=== PATIENT | female | born 1990 | race Two or more races ===

== ENCOUNTER 2023-05-25 15:22 | Emergency (ER) | payer OTHER, SELFPAY ==
[2023-05-25] VITALS (9 sets, daily range): BP systolic 120–145; BP diastolic 74–97; PULSE 91–109; RESP 17–29; TEMP 36.7; O2SAT 98–100; BMI 36.5
--- NOTE | 2023-05-25 15:45 | XR_ITS ---
[address] [address] Patient Name: FARHEEN SILVERMAN MRN: [id number] date: 1990 Sex: F Assigned Patient Location: ER Current Patient Location: Accession/Order Number: [id number] Exam Date: 05/25/2023 16:04 Report Date: 05/25/2023 17:03 At the request of: GAVIN CHAPA Procedure: XR chest 2V EXAM: XR chest 2V TECHNIQUE: PA and lateral views chest HISTORY: chest pain COMPARISON: CT scan 09/10/2022 FINDINGS: The heart and mediastinum are unremarkable. The lungs are clear of any acute infiltrate, effusion or mass. Osseous structures are intact. XR/XR chest 2V IMPRESSION: No acute findings. Electronically authenticated by: LEIGH BEAR Date: 05/25/2023 17:03
--- NOTE | 2023-05-25 15:45 | ECG_ITS ---
[facility] Test Date: 2023-05-25 Pat Name: FARHEEN SILVERMAN Department: Room: - Gender: Female [employer]: : 1990 Requested By: Lan Koenig Order Number: [id number] Reading MD: SCAR BASS Measurements Intervals [place] Rate: 86 P: 52 NV: 136 QRS: 37 QRSD: 84 T: 6 QT: 350 QTc: 394 Interpretive Statements 1100 Sinus rhythm 1108 Marked sinus arrhythmia 9130 borderline ECG No previous ECG available for comparison Electronically Signed On 05-26-2023 6:18:51 EST by SCAR BASS
--- NOTE | 2023-05-25 15:50 | ED.CHESTPAI1 ---
HPI - Chest Pain General Chief Complaint: Chest Pain Stated Complaint: chest pain Time Seen by Provider: 05/25/23 15:33 Source: patient Mode of arrival: walk-in History of Present Illness HPI narrative: Patient developed pain across the anterior chest 2-3 days ago. No testing or out-patient meds taken. Today she decided to come to our ED for evaluation. No fever or cough. She denied any injury or activity that might have caused the pain. On questioning she told me that she had previously been diagnosed with blood clot in the lungs - years ago - but a repeat CTA chest at [facility] showed it had gone away . No other symptoms. Pain worse with any movement of the torso or chest. Related Data Previous Rx's Medication Instructions Recorded nabumetone 750 mg tablet 750 mg PO BID PRN pain #20 tabs 05/25/23 Allergies Allergy/AdvReac Type Severity Reaction Status Date / Time No Known Drug Allergies Allergy Verified 05/25/23 15:28 PFSH [facility] Social History Smoking status: Current every day smoker Exam Narrative Exam Narrative: Nurses notes and vital signs reviewed and patient is not hypoxic. afebrile General: Well-appearing and in no apparent distress. Skin: Warm, dry, no pallor noted. Eye: Pupils are equal, round and EOMI. No scleral icterus. Cardiovascular: Regular Rate and Rhythm without murmur, gallop or rub. Respiratory: No accessory muscle use or respiratory distress. Lungs are clear to auscultation, no wheezing, rales or rhonchi Chest Wall: diffuse anterior tenderness without crepitus or subcutaneous emphysema Musculoskeletal: normal ROM, no calf or popliteal tenderness, no lower extremity edema/swelling Neurological: A&O x4. No cranial nerve dysfunction observed. No truncal ataxia. Moves all extremities. Sensation intact. Psychiatric: Cooperative and interactive. Normal mood and affect. Constitutional Vital Signs, click to edit/add: Last Vital Signs Temp 98.1 F 05/25/23 15:26 Pulse 91 H 05/25/23 16:30 Resp 17 05/25/23 16:30 BP 142/80 H 05/25/23 16:38 Pulse Ox 100 05/25/23 16:30 Course Vital Signs Vital signs: Vital Signs Temperature 98.1 F 05/25/23 15:26 Pulse Rate 109 H 05/25/23 15:26 Respiratory Rate 18 05/25/23 15:26 Blood Pressure 120/91 05/25/23 15:26 Pulse Oximetry 99 05/25/23 15:26 Temperature 98.1 F 05/25/23 15:26 Pulse Rate 91 H 05/25/23 16:30 Respiratory Rate 17 05/25/23 16:30 Blood Pressure 142/80 H 05/25/23 16:38 Pulse Oximetry 100 05/25/23 16:30 MDM - Chest Pain MDM Narrative Medical decision making narrative: Patient was placed on air sampling and monitoring and EKG obtained. Blood drawn and sent for evaluation - screening d-dimer. CXR obtained while we awaited d-dimer result. Screening D-dimer was negative and chest x-ray was unremarkable. Patient was informed of results and discharged home. She will be given a dose of Toradol in the emergency department. I discharged her home with a prescription for Relafen. She can see her primary care physician for follow-up or return to the emergency department if she worsens. Lab Data Attestation: I reviewed the patient's lab results. Labs: Lab Results 05/25/23 Range/Units 15:59 D-Dimer 0.33 (<=0.59) mg/L FEU Imaging Data Chest x-ray: My impression: NAD Radiologist's impression: Patient Name: FARHEEN SILVERMAN MRN: [id number] date: 1990 Sex: F Assigned Patient Location: ER Current Patient Location: Accession/Order Number: [id number] Exam Date: 05/25/2023 16:04 Report Date: 05/25/2023 17:03 At the request of: GAVIN CHAPA Procedure: XR chest 2V EXAM: XR chest 2V TECHNIQUE: PA and lateral views chest HISTORY: chest pain COMPARISON: CT scan 09/10/2022 FINDINGS: The heart and mediastinum are unremarkable. The lungs are clear of any acute infiltrate, effusion or mass. Osseous structures are intact. IMPRESSION: No acute findings. Electronically authenticated by: LEIGH BEAR Date: 05/25/2023 17:03 ECG Data Attestation: I personally reviewed and interpreted this ECG as follows: Interpretation: EKG interpretation: Emergency Department physician interpretation. Normal sinus rhythm at 86bpm. Normal axis, normal intervals and no ST segment elevation or depression. Discharge Plan Discharge Chief Complaint: Chest Pain Clinical Impression: Chest pain, Pleurisy Patient Disposition: Home, Self-Care Time of Disposition Decision: 16:27 Prescriptions / Home Meds: New nabumetone 750 mg tablet 750 mg PO BID PRN (Reason: pain) Qty: 20 0RF Instructions: Chest Pain (ED), Pleurisy (ED) Stand Alone Forms: Portal Instructions Referrals: Physician,Non-Staff, MD [Primary Care Provider] - 1 week Discharge Date/Time: 05/25/23 16:40
[2023-05-25] MEDS: KETOROLAC TROMETHAMINE 10 MG TABLET PO (16:11)
[2023-05-25 16:18] LABS: D Dimer 0.33 mg/L FEU (<=0.59)
== END 2023-05-25 16:40 | disposition home or self-care (01) ==
PROVIDERS: Emergency Provider Emergency Medicine
DX: R07.9 Chest pain, unspecified (principal); R09.1 Pleurisy; F17.210 Nicotine dependence, cigarettes, uncomplicated
CPT/HCPCS: 36415; 71046; 85378; 93005; 99285

== ENCOUNTER 2024-07-01 12:51 | Emergency (ER) | payer OTHER, SELFPAY ==
[2024-07-01 12:58] VITALS: BP 163/100; PULSE 98; TEMP 37; O2SAT 99; BMI 38.7
--- NOTE | 2024-07-01 13:13 | US_ITS ---
The [place] [id number] Patient Name: FARHEEN SILVERMAN MRN: [id number] date: 1990 Sex: F Assigned Patient Location: ED.MAIN Current Patient Location: ER Accession/Order Number: [id number] Exam Date: 07/01/2024 13:15 Report Date: 07/01/2024 13:53 At the request of: LEELA SON Procedure: US venous doppler LE BI EXAMINATION: US venous doppler LE BI HISTORY: pain, hx DVT COMPARISON: No relevant comparison available. FINDINGS: REGION: Bilateral lower extremities THROMBI: None. COMPRESSIBILITY: Normal compressibility. FLOW: Normal waveform and antegrade flow between 5 and 20 cm/s. OTHER: None. US/US venous doppler LE BI IMPRESSION: 1. No deep vein thrombus within the right or left lower extremity. Electronically authenticated by: KEILY JOLLEY Date: 07/01/2024 13:53
--- NOTE | 2024-07-01 13:13 | ED.EXTPRO1 ---
HPI - Extremity Problem General Chief complaint: Extremity Problem, Nontraumatic Stated complaint: LOWER EXTREMITY NUMBNESS Time Seen by Provider: 07/01/24 13:06 Mode of arrival: walk-in History of Present Illness HPI Narrative: 33 year old female presents to the ED for bilateral leg pain. Onset was a few days ago. She has hx DVT. Reports tingling to her legs. Denies injury, weakness, back pain. Denies urinary sx, saddle anesthesia. States 2-3 days ago she had a CT scan of her chest at [facility]. States the CT scan was negative for PE. Reports she was given a dose of Eliquis and an order for an outpatient venous Doppler; she has not been able to complete the Doppler. States she was also given a prescription for Eliquis, but the pharmacy did not have the medication. She was last treated for DVT 2 years ago. Denies CP, dizziness, SOB. The patient does report chronic low back pain. States she is diabetic, but has not been on medication for her blood sugar in years. Denies urinary sx, change in bowel and/or bladder control. Denies saddle anesthesia. Related Data Home Medications ?Medication ?Instructions ?Recorded ?Confirmed No Known Home Medications 07/01/24 07/01/24 Previous Rx's ?Medication ?Instructions ?Recorded hydrocodone 5 mg-acetaminophen 325 1 tab PO Q8H PRN pain 3 days #9 07/01/24 mg tablet tabs tizanidine 2 mg capsule (Zanaflex) 2 mg PO Q8H PRN muscle spasticity 07/01/24 #12 caps Allergies Allergy/AdvReac Type Severity Reaction Status Date / Time No Known Drug Allergies Allergy Verified 05/25/23 15:28 Review of Systems ROS Constitutional Denies: fever or chills Cardiovascular Denies: chest pain, edema, swelling of feet/ankles or lightheadedness Respiratory Denies: shortness of breath or cough Gastrointestinal Denies: abdominal pain, nausea, vomiting or diarrhea Genitourinary Denies: painful urination, urinary frequency, urinary urgency, urinary incontinence, blood in urine or difficulty voiding Musculoskeletal Reports: back pain and extremity pain; Denies: neck pain or extremity swelling Integumentary/Breast Denies: rash, itching or redness PFSH PFSH Social History Smoking status: Current every day smoker Little interest or pleasure in doing things: not at all Feeling down, depressed, or hopeless: not at all Exam Constitutional Vital Signs, click to edit/add: Last Vital Signs Temp 98.6 F 07/01/24 12:58 Pulse 98 H 07/01/24 12:58 Resp 18 07/01/24 12:58 BP 163/100 H 07/01/24 12:58 Pulse Ox 99 07/01/24 12:58 O2 Del Method Room Air 07/01/24 12:58 Common normals: no apparent distress and oriented x3 General appearance: cooperative Eye Common normals: conjunctivae normal and no scleral icterus Neck & C-Spine Common normals: supple Respiratory Common normals: normal respiratory effort Effort & inspection: able to speak in complete sentences and symmetric chest movement Cardio Common normals: regular rate Peripheral pulses: posterior tibial pulses present and dorsalis pedis pulses present Back & Pelvis Thoracic spine/upper back: normal to inspection; no thoracic spinal tenderness and no paraspinal muscle tenderness Lumbar spine/lower back: normal to inspection and paraspinal muscle tenderness; no lumbar spinal tenderness Extremity Other: Tenderness to bilateral feet and lower legs with minimal touch. No erythema or swelling noted. Tenderness includes the anterior legs. Neuro Common normals: oriented x3 and moves all extremities Sensorium/orientation: awake and alert Speech: speech normal Gait (neuro): normal gait Course Vital Signs Vital signs: Vital Signs Temperature 98.6 F 07/01/24 12:58 Pulse Rate 98 H 07/01/24 12:58 Respiratory Rate 18 07/01/24 12:58 Blood Pressure 163/100 H 07/01/24 12:58 Pulse Oximetry 99 07/01/24 12:58 Oxygen Delivery Method Room Air 07/01/24 12:58 Temperature 98.6 F 07/01/24 12:58 Pulse Rate 98 H 07/01/24 12:58 Respiratory Rate 18 07/01/24 12:58 Blood Pressure 163/100 H 07/01/24 12:58 Pulse Oximetry 99 07/01/24 12:58 Oxygen Delivery Method Room Air 07/01/24 12:58 MDM - Extremity (Nontraumatic) MDM Narrative Medical decision making narrative: Venous Doppler was negative for DVT bilaterally. Blood sugar was 244. X-ray of the lumbar spine showed mild degenerative disc disease and facet arthropathy at L5-S1 suspected cause mild to moderate foramen narrowing. Findings were discussed with the patient. She was encouraged to follow up with her pcp for a recheck, further evaluation and treatment; she was encouraged to call today to schedule an appointment. [facility]AR[place] was reviewed. Prescriptions were provided for [place] and Zanaflex. Medical Records Attestation: I reviewed the patient's medical records. Lab Data Attestation: I reviewed the patient's lab results. Labs: Lab Results 07/01/24 Range/Units 14:11 POC Glucose 244 H (74-106) mg/dL Imaging Data XR and Doppler: Attestation: I have reviewed the pertinent imaging results. Radiologist's impression: ITS Impressions Venous Doppler Study 07/01/24 13:13 IMPRESSION: 1. No deep vein thrombus within the right or left lower extremity. Electronically authenticated by: KEILY JOLLEY Date: 07/01/2024 13:53 Lumbar Spine X-Ray 07/01/24 14:04 IMPRESSION: 1. Mild degenerative disc disease and facet arthropathy at L5-S1 suspected cause mild to moderate foramen narrowing. Electronically authenticated by: KEILY JOLLEY Date: 07/01/2024 14:31 Discharge Plan Discharge Chief Complaint: Extremity Problem, Nontraumatic Clinical Impression: Bilateral leg pain, Back pain, Elevated blood sugar level Patient Disposition: Home, Self-Care Time of Disposition Decision: 14:48 Condition: Good Mode of Transportation: Private Vehicle Prescriptions / Home Meds: New hydrocodone-acetaminophen 5-325 mg tablet 1 tab PO Q8H PRN (Reason: pain) 3 Days Qty: 9 0RF tizanidine [Zanaflex] 2 mg capsule 2 mg PO Q8H PRN (Reason: muscle spasticity) Qty: 12 0RF No Action No Known Home Medications Print Language: [place] Instructions: Paresthesia (ED), Back Pain (ED), Leg Pain (ED) Additional Instructions: Return to the ER for worsening symptoms. Follow up with your primary care provider for further evaluation and treatment. Referrals: Physician,Non-Staff, MD [Physician] - 1 week Discharge Date/Time: 07/01/24 15:15
--- NOTE | 2024-07-01 14:04 | XR_ITS ---
[facility] [place] [id number] Patient Name: FARHEEN SILVERMAN MRN: [id number] date: 1990 Sex: F Assigned Patient Location: ER Current Patient Location: ER Accession/Order Number: [id number] Exam Date: 07/01/2024 14:15 Report Date: 07/01/2024 14:31 At the request of: LEELA SON Procedure: XR lumbar spine 2-3V EXAMINATION: XR lumbar spine 2-3V HISTORY: pain; radiates down legs COMPARISON: No relevant comparison available. FINDINGS: BONES: Mild degenerative facet arthropathy L5-S1. DISC SPACES: Small posterior disc osteophyte complex at L5-S1. No significant disc height reduction. PARASPINOUS: Negative. No paraspinous abnormality is seen. OTHER: Negative. XR/XR lumbar spine 2-3V IMPRESSION: 1. Mild degenerative disc disease and facet arthropathy at L5-S1 suspected cause mild to moderate foramen narrowing. Electronically authenticated by: KEILY JOLLEY Date: 07/01/2024 14:31
[2024-07-01 14:12] LABS: Glucometer 244 mg/dL (74-106)
== END 2024-07-01 15:15 | disposition home or self-care (01) ==
PROVIDERS: Emergency Provider Emergency Medicine
DX: M79.605 Pain in left leg (principal); M79.604 Pain in right leg; E11.65 Type 2 diabetes mellitus with hyperglycemia; Z86.718 Personal history of other venous thrombosis and embolism; M54.50 Low back pain, unspecified; G89.29 Other chronic pain; F17.200 Nicotine dependence, unspecified, uncomplicated; M51.379 Other intervertebral disc degeneration, lumbosacral region without mention of lumbar back pain or lower extremity pain
CPT/HCPCS: 36415; 72100; 93970; 99284